=== PATIENT | male | born 1985 | race Two or more races ===

== ENCOUNTER 2021-07-06 12:53 | Inpatient (IN) | payer BC, OTHER ==
[~2021-07-06] VITALS: Ht 170.2 cm; Wt 97.0 kg
[2021-07-06] MEDS ORDERED: HYDROmorphone HCL 2 MG/ML VL IV ONE ×2 (14:00→15:30)
[2021-07-06] MEDS ORDERED: SODIUM CHLORIDE 0.9% 1,000 ML IV ONE (14:00)
[2021-07-06] MEDS ORDERED: ceFAZolin 1GM/50ML 50 ML IV ONE ×2 (14:00→16:00)
[2021-07-06] MEDS ORDERED: PROMETHAZINE HCL 25 MG/ML 1ML IV ONE (14:00)
[2021-07-06] MEDS ORDERED: TETANUS-DIPTH-ACEL PERTUSSIS 0.5ML SYR Tdap IM ONE (14:00)
[2021-07-06 14:35] LABS: Basophils # (auto) 0.1 10 ^3/uL (0-0.2); Basophils % (auto) 0.5 % (0.0-2.0); Eosinophils # (auto) 0 10 ^3/uL (0-0.8); Eosinophils % (auto) 0.1 % (0.0-7.0); Hematocrit 39.1 % (41.0-53.0); Hemoglobin 13.4 g/dL (13.5-17.5); Lymphocytes # (auto) 0.9 10 ^3/uL (0.4-5.4); Lymphocytes % (auto) 6.8 % (10.0-50.0); Mean Corpuscular Hemoglobin 33.1 pg (28.0-32.0); Mean Corpuscular Hgb Conc. 34.4 g/dL (32.0-36.0); Mean Corpuscular Volume 96.1 fL (80.0-100.0); Monocytes # (auto) 0.7 10 ^3/uL (0-1.3); Monocytes % (auto) 4.9 % (0.0-12.0); Neutrophils # (auto) 11.9 10 ^3/uL (1.6-8.6); Neutrophils % (auto) 87.7 % (37.0-80.0); Red Blood Cells 4.06 10^6/uL (4.5-5.90); Red Cell Distribution Width 12.2 % (11.8-14.3); White Blood Cell 13.5 10^3/uL (4.4-10.8)
[2021-07-06 14:51] LABS: Albumin 3.6 g/dL (3.4-5.0); Calcium 8.4 mg/dL (8.5-10.1); Magnesium 2.6 mg/dL (1.6-2.6); Potassium 3.6 mmol/L (3.5-5.1)
[2021-07-06 14:53] LABS: BUN/Creatinine Ratio 17.3
[2021-07-06 14:56] LABS: Bilirubin, Total 0.3 mg/dL (0.2-1.0); Total Protein 7.1 g/dL (6.4-8.2)
[2021-07-06] MEDS ORDERED: DOCUSATE SOD 100 MG CAP PO PRN (16:15)
[2021-07-06] MEDS ORDERED: HYDROcodone-ACET 5/325MG TAB PO PRN (16:15)
[2021-07-06] MEDS ORDERED: MORPHINE SULFATE INJECTION 2 MG/ML SYRG IV PRN (16:15)
[2021-07-06] MEDS ORDERED: NITROGLYCERIN 0.4 MG SL TAB SL PRN (16:15)
[2021-07-06] MEDS ORDERED: ENOXAPARIN SOD 40 MG/0.4 ML SYRINGE SC ONE (16:15)
[2021-07-06] MEDS ORDERED: ACETAMINOPHEN 325 MG TAB PO PRN (16:15)
[2021-07-06 16:43] LABS: INR 1.03 (0.9-1.15); Partial Thromboplastin Time 27.3 sec (23.6-33.0)
[2021-07-06] MEDS: MORPHINE SULFATE 4 MG/ML SYR/VIAL IV PRN ×3 (17:56→22:35)
[2021-07-06 22:00] VITALS: BP 127/75
[2021-07-06] MEDS ORDERED: ceFAZolin 1GM/50ML 50 ML IV SCH (22:00)
[2021-07-06] MEDS ORDERED: ceFAZolin 2 GM in D5W 5% 100 ML IV SCH (22:00)
[2021-07-06] MEDS: D5W/LACTATED RINGERS 1,000 ML IV SCH (22:16)
[2021-07-06] MEDS: ceFAZolin 1GM/50ML 50 ML IV SCH (22:33)
[2021-07-07 00:58] LABS: INR 1.04 (0.9-1.15); Partial Thromboplastin Time 30.4 sec (23.6-33.0)
[2021-07-07] MEDS: MORPHINE SULFATE 4 MG/ML SYR/VIAL IV PRN (02:39)
[2021-07-07 04:25] VITALS: BP 117/78
[2021-07-07 04:59] LABS: Basophils # (auto) 0 10 ^3/uL (0-0.2); Basophils % (auto) 0.3 % (0.0-2.0); Eosinophils # (auto) 0 10 ^3/uL (0-0.8); Eosinophils % (auto) 0.4 % (0.0-7.0); Hematocrit 36.6 % (41.0-53.0); Hemoglobin 12.6 g/dL (13.5-17.5); Lymphocytes # (auto) 1.7 10 ^3/uL (0.4-5.4); Lymphocytes % (auto) 20.4 % (10.0-50.0); Mean Corpuscular Hemoglobin 33.2 pg (28.0-32.0); Mean Corpuscular Hgb Conc. 34.4 g/dL (32.0-36.0); Mean Corpuscular Volume 96.5 fL (80.0-100.0); Monocytes # (auto) 0.7 10 ^3/uL (0-1.3); Monocytes % (auto) 8.6 % (0.0-12.0); Neutrophils # (auto) 5.9 10 ^3/uL (1.6-8.6); Neutrophils % (auto) 70.3 % (37.0-80.0); Red Cell Distribution Width 12.5 % (11.8-14.3); White Blood Cell 8.4 10^3/uL (4.4-10.8)
[2021-07-07 05:18] LABS: BUN/Creatinine Ratio 18.3; Calcium 7.8 mg/dL (8.5-10.1); Potassium 3.6 mmol/L (3.5-5.1)
[2021-07-07 05:21] LABS: Bilirubin, Total 0.5 mg/dL (0.2-1.0); Total Protein 6.1 g/dL (6.4-8.2)
[2021-07-07] MEDS: D5W/LACTATED RINGERS 1,000 ML IV SCH ×3 (05:50→21:05)
[2021-07-07] MEDS: ceFAZolin 1GM/50ML 50 ML IV SCH (06:13)
[2021-07-07] MEDS ORDERED: HYDROmorphone HCL 2 MG/ML VL ONE (07:15)
[2021-07-07] MEDS ORDERED: fentaNYL CITRATE 100 MCG/2 ML VL ONE ×2 (07:15→08:03)
[2021-07-07] MEDS ORDERED: KETOROLAC TROMETH 30 MG/ML 1ML VIAL ONE (07:16)
[2021-07-07] MEDS ORDERED: MIDAZOLAM HCL 2MG/2ML 2ml VIAL (1mg/ml) ONE (07:16)
[2021-07-07] MEDS ORDERED: GLYCOPYRROLATE 0.2 MG/ML 1ML VIAL ONE (07:16)
[2021-07-07] MEDS ORDERED: LIDOCAINE 2% (LOCAL ANESTH.) PF 5ml SDV ONE (07:16)
[2021-07-07] MEDS ORDERED: ONDANSETRON HCL 4 MG/2 ML VIAL ONE (07:16)
[2021-07-07] MEDS ORDERED: PROPOFOL 10 MG/ML 20 ML IV ONE (07:16)
[2021-07-07] MEDS ORDERED: DexAMETHasone SOD PHOS 10MG/1ML VIAL INJ ONE (07:16)
[2021-07-07] MEDS ORDERED: KETAMINE HCL 10 ML ONE (07:21)
[2021-07-07] MEDS ORDERED: ROPIVACAINE 0.5% (5MG/ML) 20ML AMPULE IJ ONE (07:27)
[2021-07-07 08:00] VITALS: BP 127/55
[2021-07-07] MEDS ORDERED: ONDANSETRON HCL 4 MG/2 ML VIAL IV PRN (09:45)
[2021-07-07] MEDS ORDERED: HYDROmorphone HCL 2 MG/ML VL IV PRN (09:45)
[2021-07-07] MEDS: ENOXAPARIN SOD 40 MG/0.4 ML SYRINGE SC SCH (10:00)
[2021-07-07] MEDS: HYDROmorphone HCL 2 MG/ML VL IV PRN ×3 (11:58→22:15)
[2021-07-07] MEDS: ONDANSETRON HCL 4 MG/2 ML VIAL IV PRN ×2 (11:59→17:48)
[2021-07-07 12:33] VITALS: BP 127/55
[2021-07-07] MEDS: SODIUM CHLOR 0.9% PF (SALINE LOCK) 10ML VIAL/SYR IV SCH ×2 (13:39→21:43)
[2021-07-07] MEDS: ceFAZolin 2 GM in D5W 5% 100 ML IV SCH ×2 (14:00→21:42)
[2021-07-07 16:53] VITALS: BP 118/78
[2021-07-07] MEDS ORDERED: ceFAZolin 1GM/50ML 100 ML IV SCH (21:30)
[2021-07-07 22:03] VITALS: BP 138/95
[2021-07-08] MEDS: HYDROmorphone HCL 2 MG/ML VL IV PRN ×4 (02:54→19:21)
[2021-07-08 05:00] VITALS: BP 122/83
[2021-07-08] MEDS: ceFAZolin 2 GM in D5W 5% 100 ML IV SCH ×3 (06:09→22:52)
[2021-07-08] MEDS: D5W/LACTATED RINGERS 1,000 ML IV SCH ×2 (06:09→15:26)
[2021-07-08] MEDS: SODIUM CHLOR 0.9% PF (SALINE LOCK) 10ML VIAL/SYR IV SCH ×3 (06:10→22:52)
[2021-07-08 08:10] VITALS: BP 125/82
[2021-07-08 09:00] VITALS: BP 125/82
[2021-07-08] MEDS: ENOXAPARIN SOD 40 MG/0.4 ML SYRINGE SC SCH (09:16)
[2021-07-08 10:00] LABS: Basophils # (auto) 0.1 10 ^3/uL (0-0.2); Basophils % (auto) 0.8 % (0.0-2.0); Eosinophils # (auto) 0 10 ^3/uL (0-0.8); Eosinophils % (auto) 0.1 % (0.0-7.0); Hematocrit 30.6 % (41.0-53.0); Hemoglobin 10.3 g/dL (13.5-17.5); Lymphocytes # (auto) 1.6 10 ^3/uL (0.4-5.4); Lymphocytes % (auto) 12.3 % (10.0-50.0); Mean Corpuscular Hemoglobin 32.5 pg (28.0-32.0); Mean Corpuscular Hgb Conc. 33.8 g/dL (32.0-36.0); Mean Corpuscular Volume 96.2 fL (80.0-100.0); Monocytes # (auto) 0.5 10 ^3/uL (0-1.3); Monocytes % (auto) 4.1 % (0.0-12.0); Neutrophils # (auto) 10.9 10 ^3/uL (1.6-8.6); Neutrophils % (auto) 82.7 % (37.0-80.0); Nucleated Red Blood Cells % 0.1 %; Red Blood Cells 3.18 10^6/uL (4.5-5.90); Red Cell Distribution Width 12.2 % (11.8-14.3); White Blood Cell 13.2 10^3/uL (4.4-10.8)
[2021-07-08] MEDS: HYDROcodone-ACET 10/325MG TAB PO PRN ×2 (10:20→23:06)
[2021-07-08 13:00] VITALS: BP 123/81
[2021-07-08 17:30] VITALS: BP 129/86
[2021-07-08 22:00] VITALS: BP 129/90
[2021-07-09] MEDS: D5W/LACTATED RINGERS 1,000 ML IV SCH ×2 (01:36→11:45)
[2021-07-09] MEDS: HYDROmorphone HCL 2 MG/ML VL IV PRN (03:23)
[2021-07-09 05:00] VITALS: BP 118/85
[2021-07-09] MEDS: SODIUM CHLOR 0.9% PF (SALINE LOCK) 10ML VIAL/SYR IV SCH (06:00)
[2021-07-09] MEDS: ceFAZolin 2 GM in D5W 5% 100 ML IV SCH (06:00)
[2021-07-09] MEDS: HYDROcodone-ACET 10/325MG TAB PO PRN ×3 (06:01→11:46)
[2021-07-09 07:45] VITALS: BP 122/91
[2021-07-09] MEDS: ENOXAPARIN SOD 40 MG/0.4 ML SYRINGE SC SCH (08:58)
[2021-07-09] MEDS ORDERED: HYDR-4902 PO (08:58)
[2021-07-09] MEDS ORDERED: CEPH-322 PO (08:58)
[2021-07-09 09:00] VITALS: BP 122/60
[2021-07-09 10:23] VITALS: BP 122/91
[2021-07-09 11:45] VITALS: BP 125/84
[2021-07-09 12:46] VITALS: BP 125/84
== END 2021-07-09 11:15 | disposition home or self-care (01) | DRG 494 ==
LOC: ER 12:53 → OVERFLOW 16:10 → CENTRAL 18:10
PROVIDERS: ADMIT Nurse Practitioner Family; ATTEND Family Medicine
PROC: 0QSH36Z Reposition Left Tibia with Intramedullary Internal Fixation Device, Percutaneous Approach (ICD-10-PCS; 2021-07-07)
PROC: 0R9L0ZZ Drainage of Right Elbow Joint, Open Approach (ICD-10-PCS; 2021-07-07)
PROC: 3E10X8Z Irrigation of Skin and Mucous Membranes using Irrigating Substance (ICD-10-PCS; principal; 2021-07-07 07:31)
DX: S82.202B Unspecified fracture of shaft of left tibia, initial encounter for open fracture type I or II (principal); S50.01XA Contusion of right elbow, initial encounter; D72.829 Elevated white blood cell count, unspecified; Z20.822 Contact with and (suspected) exposure to COVID-19; S82.402A Unspecified fracture of shaft of left fibula, initial encounter for closed fracture; V29.9XXA Motorcycle rider (driver) (passenger) injured in unspecified traffic accident, initial encounter; V86.56XA Driver of dirt bike or motor/cross bike injured in nontraffic accident, initial encounter
CPT/HCPCS: 36415; 70450; 71045; 73080; 73590; 76000; 80053; 83735; 85025; 85610; 85730; 86850; 86900; 86901; 87205; 87426; 90471; 90715; 93005; 96361; 96365; 96372; 96375; 96376; 97163; G0378; J0690; J1100; J1885; J2001; J2250; J2405; J2704; J7060